=== PATIENT | female | born 1935 | race Caucasian/White ===

== ENCOUNTER 2022-06-08 13:37 | Inpatient (IN) | payer MEDICARE, BC ==
[~2022-06-08] VITALS: Ht 162.6 cm; Wt 67.9 kg
[2022-06-08 14:08] LABS: Source, Urine Fem Cath
[2022-06-08 14:16] LABS: Appearance, Urine Hazy (Clear); Bilirubin, Urine Neg (Neg); Blood, Urine 4+ (Neg); Color, Urine Yellow (P-Yellow); Glucose Qualitative, Urine Neg (Neg); Ketones, Urine 3+ (Neg); Leukocyte Esterase, Urine 3+ (Neg); Nitrite, Urine Neg (Neg); Protein, Urine 2+ (Neg); Specific Gravity, Urine 1.015 (1.003-1.022); Urobilinogen, Urine NORM (Normal)
[2022-06-08 14:46] LABS: Albumin, Blood 3.2 g/dL (3.4-5.0); Albumin/Globulin Ratio 0.8 (0.8-1.8); Bilirubin, Total 0.5 mg/dL (0.1-1.0); Bun/Creatinine Ratio 19.6 (12.0-20.0); Calcium, Blood 9.1 mg/dL (8.5-10.1); Creatinine, Blood 0.61 mg/dL (0.40-1.00); Potassium, Blood 2.9 mmol/L (3.5-5.5); Total Protein, Blood 7.2 g/dL (6.4-8.2)
[2022-06-08 14:48] LABS: BASOPHILS ABSOLUTE AUTO 0.07 K/mm3 (0.00-0.23); BASOPHILS PERCENT AUTO 0 % (0-2); EOSINOPHILS ABSOLUTE AUTO 0.01 K/mm3 (0.00-0.68); EOSINOPHILS PERCENT AUTO 0 % (0-6); Hematocrit 37.8 % (33.0-51.0); Hemoglobin 13.5 g/dL (11.5-16.0); IMMATURE GRAN ABSOLUTE AUTO 0.22 K/mm3 (0.00-0.10); IMMATURE GRAN PERCENT AUTO 1 % (0-1); LYMPHOCYTES ABSOLUTE AUTO 0.49 K/mm3 (0.84-5.20); LYMPHOCYTES PERCENT AUTO 2 % (21-46); MONOCYTES ABSOLUTE AUTO 1.58 K/mm3 (0.16-1.47); MONOCYTES PERCENT AUTO 7 % (4-13); Mean Corpuscular HGB 30.4 pg (26.0-34.0); Mean Corpuscular HGB Conc 35.7 g/dL (31.5-36.5); Mean Corpuscular Volume 85 fL (80-100); Mean Platelet Volume 9.5 fL (9.1-12.4); NEUTROPHILS ABSOLUTE AUTO 21.63 K/mm3 (1.96-9.15); NEUTROPHILS PERCENT AUTO 90 % (41-73); Platelet Count 319 K/mm3 (150-400); RDW Coefficient Variation 12.5 % (11.7-14.2); RDW Standard Deviation 38.6 fL (35.1-46.3); Red Blood Cell Count 4.44 M/mm3 (3.80-5.20)
[2022-06-08 14:51] LABS: Magnesium, Blood 1.3 mg/dL (1.6-2.4)
[2022-06-08 14:54] LABS: Thyroid Stimulating Hormone 1.19 uIU/mL (0.360-4.800)
[2022-06-08 15:23] LABS: Influenza A, PCR NEGATIVE (NEGATIVE); Influenza B, PCR NEGATIVE (NEGATIVE); Resp Syncytial Virus, PCR NEGATIVE (NEGATIVE); SARS-Cov-2 (COVID-19) PCR, MMC NEGATIVE (NEGATIVE)
[2022-06-08 15:47] LABS: Bacteria Mod /hpf; Red Blood Cells, Urine 25-50 /hpf (0-2); Squamous Epithelial Cells Few /hpf (Few); White Blood Cells, Urine 50-100 /hpf (0-5)
[2022-06-08] MEDS ORDERED: GABA300 PO (20:25)
[2022-06-08] MEDS ORDERED: Cymbalta20 MG PO (20:26)
[2022-06-08] MEDS ORDERED: METO50ER PO (20:26)
[2022-06-08] MEDS ORDERED: LOSARTAN-HCTZ1 EACH PO (20:27)
[2022-06-08] MEDS ORDERED: LEVSOD150 PO (20:28)
[2022-06-08] MEDS ORDERED: PANT40 PO (20:29)
[2022-06-08] MEDS ORDERED: Colace100 MG PO (20:30)
[2022-06-09 03:37] LABS: Hematocrit 32.3 % (33.0-51.0); Hemoglobin 11.5 g/dL (11.5-16.0); Mean Corpuscular HGB 30.7 pg (26.0-34.0); Mean Corpuscular HGB Conc 35.6 g/dL (31.5-36.5); Mean Corpuscular Volume 86 fL (80-100); Mean Platelet Volume 9.6 fL (9.1-12.4); Platelet Count 264 K/mm3 (150-400); RDW Coefficient Variation 12.7 % (11.7-14.2); RDW Standard Deviation 39.7 fL (35.1-46.3); Red Blood Cell Count 3.74 M/mm3 (3.80-5.20)
[2022-06-09 04:00] LABS: BAND PERCENT MAN 13 % (0-8); BASOPHILS PERCENT MAN 0 % (0-2); EOSINOPHILS PERCENT MAN 0 % (0-6); LYMPHOCYTES ABSOLUTE MAN 1.22 K/mm3 (0.84-5.20); LYMPHOCYTES PERCENT MAN 5 % (21-46); MONOCYTES ABSOLUTE MAN 0.48 K/mm3 (0.16-1.47); MONOCYTES PERCENT MAN 2 % (4-13); NEUTROPHILS ABSOLUTE MAN 22.69 K/mm3 (1.96-9.15); SEG NEUTROPHILS PERCENT MAN 80 % (41-73); TOTAL CELLS COUNTED 100
[2022-06-09 04:08] LABS: Bun/Creatinine Ratio 23.6 (12.0-20.0); Calcium, Blood 8.5 mg/dL (8.5-10.1); Creatinine, Blood 0.51 mg/dL (0.40-1.00); Magnesium, Blood 1.8 mg/dL (1.6-2.4); Potassium, Blood 3.4 mmol/L (3.5-5.5)
--- NOTE | 2022-06-09 06:42 | NUR ---
SHIFT SUMMARY ED ADMIT THIS SHIFT. NONVERBAL, CONFUSED, MOANING OUT OCCASSIONALLY AND ATTEMPTING TO GET OOB. CHENCHO VEST ON FOR SAFETY. RESTLESS T/O NIGHT. TELE SR WITH BBB IN THE 90S. INCONT, PUREWICK AND ATTENDS IN PLACE. SPO2 >92% ON RA. VSS, BED IN LOWEST POSITION, ALARM ON, CALL LIGHT IN REACH. WILL CONTINUE TO MONITOR AND REPORT TO ONCOMING RN.
--- NOTE | 2022-06-09 17:09 | NUR ---
SHIFT SUMMARY MENTATION REMAINS THE SAME. PT CONTINUES TO MOAN OUT AND NOT ANSWER WITH ANY WORDS. PT WILL TRACK WITH EYES WHEN HER NAME IS CALLED. BP STABLE. HR REMAINS NSR. O2 SATS REMAIN ABOVE 90% ON RA. PT RESTLESS THIS AFTERNOON AND MEDICATED WITH TYLENOL ORDERED. AFTER TYLENOL ADMINISTRATION AND REPOSITIONING, PT ABLE TO RELAX AND REST. PT HAS BEEN INCONTINENT OF URINE THIS SHIFT AND PUREWICK IN PLACE. PUREWICK REPLACED THIS SHIFT AND BED BATH PROVIDED. PT REPOSITIONED Q2H AND MORE OFTEN NEEDED. FAMILY AT BEDSIDE ALL SHIFT. NS WITH KCL INFUSING PER ORDERS. WILL CONTINUE TO MONITOR AND REPORT TO ONCOMING RN. BED ALARM ON AND CAMERA ON FOR SAFETY
--- NOTE | 2022-06-09 21:39 | NUR ---
UPDATE PT NOTED TO HAVE WORD SALAD WELL POSSIBLE R. SIDED FACIAL DROOP. MOVING ALL EXTREMITIES WITHOUT DIFFICULTY. MASTER DEPUTY SHERIFF COURT SECURITY RESIDENT TO BEDSIDE FOR ASSESSMENT, NO NEW ORDERS FOR IMAGING AT THIS TIME.
[2022-06-10 04:08] LABS: BASOPHILS ABSOLUTE AUTO 0.02 K/mm3 (0.00-0.23); BASOPHILS PERCENT AUTO 0 % (0-2); EOSINOPHILS PERCENT AUTO 0 % (0-6); Hematocrit 34.7 % (33.0-51.0); Hemoglobin 11.7 g/dL (11.5-16.0); IMMATURE GRAN ABSOLUTE AUTO 0.15 K/mm3 (0.00-0.10); IMMATURE GRAN PERCENT AUTO 1 % (0-1); LYMPHOCYTES ABSOLUTE AUTO 0.91 K/mm3 (0.84-5.20); LYMPHOCYTES PERCENT AUTO 5 % (21-46); MONOCYTES ABSOLUTE AUTO 0.92 K/mm3 (0.16-1.47); MONOCYTES PERCENT AUTO 5 % (4-13); Mean Corpuscular HGB 30.2 pg (26.0-34.0); Mean Corpuscular HGB Conc 33.7 g/dL (31.5-36.5); Mean Corpuscular Volume 89 fL (80-100); Mean Platelet Volume 9.6 fL (9.1-12.4); NEUTROPHILS PERCENT AUTO 89 % (41-73); Platelet Count 255 K/mm3 (150-400); RDW Standard Deviation 42.3 fL (35.1-46.3); Red Blood Cell Count 3.88 M/mm3 (3.80-5.20)
[2022-06-10 04:34] LABS: Albumin, Blood 2.6 g/dL (3.4-5.0); Anion Gap 8 mmol/L (6-16); Blood Urea Nitrogen 12 mg/dL (8-24); CO2, Blood 20 mmol/L (21-32); Calcium, Blood 8.8 mg/dL (8.5-10.1); Chloride, Blood 108 mmol/L (98-108); Creatinine, Blood 0.52 mg/dL (0.40-1.00); Glomerular Filtration Rate 91 (60-); Glucose, Blood 109 mg/dL (70-99); Phosphorus, Blood 1.7 mg/dL (2.5-4.9); Potassium, Blood 3.4 mmol/L (3.5-5.5); Sodium, Blood 136 mmol/L (136-145)
--- NOTE | 2022-06-10 05:48 | NUR ---
SHIFT SUMMARY LETHARGIC AND RESTLESS T/O THE NIGHT, MOANING OUT BUT WHEN ASKED IF SHE WAS IN PAIN SHE STATES "NO.", OCCASIONAL WORD SALAD NOTED. PLEASE SEE PREVIOUS NOTE. TELE SR/ST 90-110. SPO2 >92 % ON RA. IM ZYPREXA GIVEN X1. INCONT, PUREWICK AND ATTENDS IN PLACE WITH ROSY COLORED URINE. VSS, NO ACUTE CHANGES AT THIS TIME. BED IN LOWEST POSITION WITH CALL LIGHT IN REACH. WILL CONTINUE TO MONITOR AND REPORT TO ONCOMING RN.
--- NOTE | 2022-06-10 07:34 | NUR ---
ASSUMED CARE: PT RESTING IN BED, MAKING SOUNDS BUT NOT SPEAKING OR FOLLOWING COMMANDS. FAMILY AT BEDSIDE. STATES THAT SHE IS ORIENTED AND AMBULATORY AT BASELINE BUT BECOMES CONFUSED LIKE THIS WITH UTI'S. PUREWICK IN PLACE FOR INCONTINENCE. DENIES FURTHER NEEDS AT THIS TIME
--- NOTE | 2022-06-10 12:04 | NUR ---
DR GARCIA CAME TO SEE PT AND DISCUSSED PT'S NEURO STATUS. DR GARCIA ORDERED HEAD CT TO RULE OUT OTHER CAUSES FOR NEURO STATUS. PT CONTINUES TO MOAN AND NOT SPEAK WORDS. ASKED DR ABOUT IV FLUIDS PER FAMILY REQUEST. STATES SHE WILL REVIEW. FAMILY REQUESTED TYLENOL SUPPOSITORY WHICH WAS ADMINISTERED.
--- NOTE | 2022-06-10 13:28 | NUR ---
PT TAKEN TO CT VIA GURNEY BY TRANSPORT STAFF
--- NOTE | 2022-06-10 13:57 | NUR ---
PT RETURNED FROM CT. SPEECH THERAPIST CONTACTED TO KNOW THAT PT IS AVAILABLE.
--- NOTE | 2022-06-10 17:23 | NUR ---
SHIFT SUMMARY: PT'S FAMILY HAS REMAINED AT BEDSIDE THIS SHIFT. HEAD CT DONE WITH NEGATIVE RESULT. IVF STARTED PER ORDERS AND FAMILY REQUEST. PT HAS REMAINED CONFUSED THIS SHIFT, NOT FOLLOWING COMMANDS. OCCASIONALLY TRACKS STAFF AND FAMILY IN ROOM, MORE RESPONSIVE WITH ACTIVITY BUT REMAINS HAVING GARBLED SPEECH THIS SHIFT. NO ACUTE NEEDS OR CONCERNS.
--- NOTE | 2022-06-10 18:28 | NUR ---
FAMILY CAME OUT OF ROOM EXPRESSING CONCERN THAT PT'S PUREWICK HAD NOT DRAINED ALL AFTERNOON. BLADDER SCAN OBTAINED WITH ONLY [address] ATTENDS DRY[address] SID CONTINUE TO MONITOR
--- NOTE | 2022-06-11 05:54 | NUR ---
SHIFT SUMMARY RESPONDS TO VERBAL/PAINFUL STIMULI, OCCASIONALLY MOANS OUT. SLEEPING T/O MOST OF THE NIGHT. Q2 REPOSITIONING AND ORAL CARE. TELE SR IN THE 90S. SPO2 >92% ON RA. VSS, NO ACUTE CHANGES AT THIS TIME. BED IN LOWEST POSITION WITH CALL LIGHT IN REACH. WILL CONTINUE TO MONITOR AND REPORT TO ONCOMING RN.
[2022-06-11 06:02] LABS: Hemoglobin 11.5 g/dL (11.5-16.0); Mean Corpuscular HGB 30.2 pg (26.0-34.0); Mean Corpuscular HGB Conc 34.8 g/dL (31.5-36.5); Mean Corpuscular Volume 87 fL (80-100); Mean Platelet Volume 10.2 fL (9.1-12.4); Platelet Count 269 K/mm3 (150-400); RDW Coefficient Variation 12.8 % (11.7-14.2); RDW Standard Deviation 40.5 fL (35.1-46.3); Red Blood Cell Count 3.81 M/mm3 (3.80-5.20); White Blood Cell Count 15.01 K/mm3 (4.00-11.30)
[2022-06-11 06:29] LABS: Albumin, Blood 2.3 g/dL (3.4-5.0); Anion Gap 10 mmol/L (6-16); Blood Urea Nitrogen 10 mg/dL (8-24); Bun/Creatinine Ratio 21.2 (12.0-20.0); CO2, Blood 21 mmol/L (21-32); Calcium, Blood 8.1 mg/dL (8.5-10.1); Chloride, Blood 106 mmol/L (98-108); Creatinine, Blood 0.47 mg/dL (0.40-1.00); Glomerular Filtration Rate 93 (60-); Glucose, Blood 101 mg/dL (70-99); Phosphorus, Blood 1.7 mg/dL (2.5-4.9); Potassium, Blood 3.1 mmol/L (3.5-5.5); Sodium, Blood 137 mmol/L (136-145)
--- NOTE | 2022-06-11 10:02 | NUR ---
AM NOTE: PATIENT OPENING EYES THIS AM. NOT TRACKING STAFF, MOANING OUT. NONVERBAL. DAUGHTERS AT BEDSIDE REPORT PATIENT SAYING A FEW WORDS YESTERDAY. PUPILS EQUAL AND REACTIVE TO LIGHT. NOT FOLLOWING ANY COMMANDS. GRIPPING SIDERAILS WHEN TURNING PATIENT. BEDREST WITH Q2 TURNS. ON ROOM AIR, SATING MID 90'S. LUNGS SOUNDING CLEAR AND DIM IN BASES. MUCOUS MEMBRANES DRY AND SOME COATED PLAQUE. ORAL CARE PREFORMED THIS AM, BUT PATIENT NOT FOLLOWING COMMANDS TO OPEN MOUTH. OCCASIONAL WEAK COUGH. TELE SHOWING SINUS RHYTHM WITH HR 70'S. BP STABLE. DOES NOT APPEAR TO BE IN ANY CARDIAC DISTRESS/PAIN. NO SIGNS OF EDEMA. PPP. BOWEL TONES PRESENT. ATTENDS IN PLACE. PUREWICK. NPO AT THIS TIME. FAILED SWALLOW EVAL WITH ST THIS AM. POTASSIUM PHOSPHATE INFUSING PER EMAR. REDNESS TO COCCYX THAT IS BLANCHABLE, Q2 TURNING. SCATTERED BRUISING AND OVERALL PALE. DAUGHTERS AT BEDSIDE AND UPDATED ON PLAN OF CARE. WILL CONTINUE TO MONITOR. CAMERA AND BED ALARM IN PLACE.
--- NOTE | 2022-06-11 12:17 | NUR ---
PATIENT WAKING UP MORE WITH AFTERNOON CARES. TRACKING WITH EYES, FOLLOWING SIMPLE COMMANDS TO OPEN MOUTH AND SQUEEZE HANDS. SHAKING HEAD YES/NO. SAYING DUAGHTERS NAME AND HOLDING HER FACE. TELE ALERTED THIS RN THAT PATIENT HAS BEEN HAVING SHORT RUNS OF AFIB. NOT SUSTAINING. DR. GARCIA BY AND THIS RN DISCUSSED SHORT RUNS OF AFIB, TEMPERATURE THIS AM, AND AFTERNOON NEURO STATUS. SPEECH THERAPY CALLED TO UPDATE ON ALERTNESS, PLAN TO RE-EVAL AROUND 1300. FAMILY AT BEDSIDE AND UPDATED.
--- NOTE | 2022-06-11 14:03 | NUR ---
SPEECH THERAPY BACK IN TO SEE PATIENT. PATIENT NOT ABLE TO WAKE UP ENOUGH TO PARTICIPATE SAFELY DESPITE SPEECH THERAPY AND THIS RN'S BEST EFFORTS TO WAKE PATIENT UP. FAMILY AT BEDSIDE AND UPDATED. WILL CONTINUE TO MONITOR.
--- NOTE | 2022-06-11 16:57 | NUR ---
PATIENT TEMP STARTING TO ELEVATE. TYLENOL GIVEN AT 1430, RECTAL TEMP PROBE PLACED TO CONTINUALLY MONITOR. ICE PACK PLACED IN ARMPITS AND BEHIND NECK. BP AND HR STABLE. PATIENT CONTINUES TO HAVE SMALL EPISODES OF AFIB BUT DOES NOT SUSTAIN.
--- NOTE | 2022-06-11 17:53 | NUR ---
UPDATED DR. GARCIA ON PATIENT TEMP AT 101.0. ORDERS TO GIVE ADDITIONAL TYLENOL SUPPOSITORY X1 NOW.
[2022-06-11 18:43] LABS: Source, Urine Foley catheter
--- NOTE | 2022-06-11 18:46 | NUR ---
STAT CHEST XRAY, BLOOD CULTURES, PROCAL, AND UA VIA STRAIGHT CATH COMPLETED. PATIENT CONTINUES TO MOAN, AND NOT VERBALLY RESPONDING, SAID "HUH" WHEN EXPLAINING STRAIGHT CATH FOR UA. TRACKING WITH EYES, OCCASIONALLY SMILING. PUPILS REMAIN EQUAL AND REACTIVE TO LIGHT. REMAINS ON ROOM AIR. TELE CONTINUES TO SHOW SINUS RHYTHM WITH HR 70-80'S. OCCASIONAL SHORT RUNS OF AFIB, NOT SUSTAINING, DR. GARCIA AWARE. TMAX THIS SHIFT 101.3 TYLENOL SUPPOSITORIES GIVEN PER EMAR. ICE PACKS AND FAN PROVIDED. RECTAL TEMP PROBE IN PLACE. DAUGHTERS AT BEDSIDE AND UPDATED THROUGHOUT DAY. PUREWICK REMAINS IN PLACE DRAINING DARK YELLOW URINE. NS WITH KCL CONTINUES TO INFUSE.
[2022-06-11 18:49] LABS: Appearance, Urine Turbid (Clear); Bilirubin, Urine Neg (Neg); Blood, Urine 5+ (Neg); Color, Urine Yellow (P-Yellow); Glucose Qualitative, Urine Neg (Neg); Ketones, Urine 3+ (Neg); Leukocyte Esterase, Urine 3+ (Neg); Nitrite, Urine Neg (Neg); Protein, Urine 2+ (Neg); Urobilinogen, Urine NORM (Normal)
[2022-06-11 19:25] LABS: Amorphous Light (0-Heavy); Bacteria Many /hpf; Red Blood Cells, Urine 25-50 /hpf (0-2); Squamous Epithelial Cells Mod /hpf (Few); White Blood Cells, Urine TNTC /hpf (0-5)
[2022-06-11 19:26] LABS: Hyaline Casts 0-2 /lpf (0-2); Transitional Epithelial Cells Rare /hpf (0-Rare)
[2022-06-12 04:18] LABS: BASOPHILS ABSOLUTE AUTO 0.01 K/mm3 (0.00-0.23); BASOPHILS PERCENT AUTO 0 % (0-2); EOSINOPHILS PERCENT AUTO 0 % (0-6); Hematocrit 37.4 % (33.0-51.0); Hemoglobin 12.8 g/dL (11.5-16.0); IMMATURE GRAN PERCENT AUTO 1 % (0-1); LYMPHOCYTES PERCENT AUTO 18 % (21-46); MONOCYTES ABSOLUTE AUTO 1.06 K/mm3 (0.16-1.47); MONOCYTES PERCENT AUTO 9 % (4-13); Mean Corpuscular HGB 29.9 pg (26.0-34.0); Mean Corpuscular HGB Conc 34.2 g/dL (31.5-36.5); Mean Corpuscular Volume 87 fL (80-100); NEUTROPHILS ABSOLUTE AUTO 8.26 K/mm3 (1.96-9.15); NEUTROPHILS PERCENT AUTO 72 % (41-73); Platelet Count 326 K/mm3 (150-400); RDW Coefficient Variation 12.8 % (11.7-14.2); RDW Standard Deviation 40.7 fL (35.1-46.3); Red Blood Cell Count 4.28 M/mm3 (3.80-5.20); White Blood Cell Count 11.43 K/mm3 (4.00-11.30)
--- NOTE | 2022-06-12 04:38 | NUR ---
MOANING/PAIN UPON REPOSITIONING PATIENT WAS MOANING IN BED AND NODDED HEAD "YES" TO PAIN. CALL MADE TO DR. PAULINO TO UPDATE. ORDER RECEIVED FOR TORADOL 15MG IV X 1 DOSE. PATIENT IS NOW ASLEEP AND NO LONGER MOANING. WILL AWAIT TORADOL ADMINISTRATION UNTIL PATIENT IS AWAKE TO ASSESS.
[2022-06-12 04:44] LABS: Albumin, Blood 2.5 g/dL (3.4-5.0); Anion Gap 6 mmol/L (6-16); Blood Urea Nitrogen 14 mg/dL (8-24); Bun/Creatinine Ratio 23.5 (12.0-20.0); CO2, Blood 25 mmol/L (21-32); Calcium, Blood 8.6 mg/dL (8.5-10.1); Chloride, Blood 108 mmol/L (98-108); Glomerular Filtration Rate 88 (60-); Glucose, Blood 105 mg/dL (70-99); Phosphorus, Blood 2.7 mg/dL (2.5-4.9); Potassium, Blood 3.7 mmol/L (3.5-5.5); Sodium, Blood 139 mmol/L (136-145)
--- NOTE | 2022-06-12 06:18 | NUR ---
SHIFT SUMMARY PATIENT SLEPT OFF AND ON THROUGHOUT SHIFT WITH MOMENTS OF MOANING. OF THIS MORNING, PATIENT IS INCREASINGLY MORE ALERT AND RESPONSIVE WITH STAFF. FOLLOWS MORE COMMANDS AND NODS HEAD TO SIMPLE QUESTIONS. NO WORDS SPOKEN AT THIS TIME. SECOND DOSE OF TORADOL TYLENOL SUPPOSITORY ADMINISTERED. TMAX THIS SHIFT OF 101.6F. NO OTHER CHANGES DURING SHIFT.
--- NOTE | 2022-06-12 09:43 | NUR ---
DR. GARCIA CALLED AND UPDATED ON PATIENT SUSTAINING IN AFIB/AFLUTTER THROUGHOUT MOST OF NOC SHIFT AND THIS AM. RATE CONTROLLED. BP STBALE. NO NEW ORDERS. WILL ASSESSE PATIENT UPON ROUNDING.
--- NOTE | 2022-06-12 13:35 | NUR ---
DURING MORNING ASSESSMENT, PT DROWSY/LETHARGIC. SHE WAS NOT ABLE TO FOLLOW COMMANDS DURING REPOSITIONING AND CARES. PUREWICK CHANGED AND ATTENDS IN PLACE. AROUND 10AM, PT WOKE UP. PT WAS ABLE TO FOLLOW COMMANDS AND VERBALIZE CARE NEEDS. SPEECH THERAPIST BALAJI: [facility] SOFT DIET ORDERED W/ FEED ASSIST. PT ON RM AIR, SAT @ HIGH 90S. UPON AUSCULTATION, LUNG SOUNDS CLEAR, SNORE NOTED. TELE SHOWING AFIB/AFLUTTER. DR. GARCIA NOTIFIED OF PT SUSTAINING AFIB/AFLUTTER THROUGHOUT NOC SHIFT AND THIS MORNING. HR 70S-110S. BP STABLE. PT FEBRILE, TEMP @ 99 - 100.6. MEDICATED W/ TYLENOL, TEMP DECREASED. ECHO BEING DONE AT THIS TIME. PT/OT ORDERS IN PLACE. FAMILY REMAINS AT BEDSIDE. ABX INFUSED THIS AM.
--- NOTE | 2022-06-12 14:02 | NUR ---
Echocardiogram completed.
--- NOTE | 2022-06-12 19:37 | NUR ---
SEE AM NOTE FOR UPDATES. PATIENT MENTATION WAXING WITH ELEVATED TEMP. ABLE TO WAKE FOR MEALS AND CARES. CONTINUES TO FOLLOW SIMPLE COMMANDS. PT/OT ORDERS IN PLACE. Q2 TURNING AND NEEDED. REMAINS ON ROOM AIR SATING ABOVE 95%. NO COUGH NOTED THROUGHOUT SHIFT. TELE CONTINUES TO SHOW AFLUTTER WITH HR 70-110'S. PO METOPROLOL RESTARTED AND GIVEN WITH CRUSHED APPLESAUCE. DENIES CHEST PAIN/PRESSURE THROUGHOUT SHIFT. EATING SMALL AMOUNTS. SWALLOWING SAFELY AND MAINTAINING SPEECH THERAPY ORDERS. FAMILY REMAIN AT BEDSIDE THROUGHOUT SHIFT. PATIENT TMAX THIS SHIFT 101.0. PO TYLENOL PROVIDED PER EMAR WITH SOME RELIED IN TEMPERATURE. COMPLAINS OF SOME HIP SORNESS THIS EVENING. DR. GARCIA CALLED AND TORDAL 15 MG IV X1 ORDERED AND GIVEN TO PATIENT. PATIENT NOW SLEEPING. PUREWICK CHANGED THROUGHOUT SHIFT. ATTENDS IN PLACE. REPORTED OFF TO NURY MELGOZA. BED ALARM IN PLACE.
--- NOTE | 2022-06-12 21:00 | NUR ---
ASSUMPTION OF CARE THIS RN ASSUMED CARE OF PATIENT AT 1900. REPORT TAKEN FROM LILLIAN MELGOZA. PATIENT'S VSS. TEMP OF 99.3 AT THIS TIME. RECTAL PROBE IN PLACE. PATIENT CONTINUES TO BE IN AFIB WITH HR 90'S. DENIES PAIN AT THIS TIME. PATIENT TOOK PO MEDS WELL CRUSHED IN APPLESAUCE. NO SIGNS OF DISTRESS OR ASPIRATION NOTED. PATIENT IS ALERT BUT ORIENTED TO SELF AND FAMILY ONLY. UNSURE OF DATE/TIME/SITUATION/PLACE. CALM AND COOPERATIVE WITH CARE. REPOSITIONING DONE Q2HRS. ATTENDS IN PLACE. PUREWICK IN PLACE AND DRAINING DARK YELLOW URINE. BED IN LOWEST POSITION, BED ALARM ON, CALL LIGHT WITHIN REACH.
[2022-06-13 04:10] LABS: Hematocrit 39.6 % (33.0-51.0); Mean Corpuscular HGB 30.2 pg (26.0-34.0); Mean Corpuscular HGB Conc 35.4 g/dL (31.5-36.5); Mean Corpuscular Volume 85 fL (80-100); Mean Platelet Volume 9.8 fL (9.1-12.4); Platelet Count 401 K/mm3 (150-400); RDW Coefficient Variation 12.8 % (11.7-14.2); RDW Standard Deviation 39.3 fL (35.1-46.3); Red Blood Cell Count 4.64 M/mm3 (3.80-5.20); White Blood Cell Count 12.01 K/mm3 (4.00-11.30)
[2022-06-13 04:55] LABS: Albumin, Blood 2.5 g/dL (3.4-5.0); Anion Gap 9 mmol/L (6-16); Blood Urea Nitrogen 15 mg/dL (8-24); Bun/Creatinine Ratio 24.4 (12.0-20.0); CO2, Blood 23 mmol/L (21-32); Calcium, Blood 8.8 mg/dL (8.5-10.1); Chloride, Blood 107 mmol/L (98-108); Creatinine, Blood 0.61 mg/dL (0.40-1.00); Glomerular Filtration Rate 88 (60-); Glucose, Blood 99 mg/dL (70-99); Phosphorus, Blood 2.1 mg/dL (2.5-4.9); Potassium, Blood 3.5 mmol/L (3.5-5.5); Sodium, Blood 139 mmol/L (136-145)
--- NOTE | 2022-06-13 05:41 | NUR ---
SHIFT SUMMARY PATIENT CONTINUES TO BE ALERT/LETHARGIC AT TIMES. ALERT TO SELF AND FAMILY. OCCASIONALLY KNOWS THE DATE/YEAR. CONFUSION APPEARS TO WORSEN WITH FEVER. MAX TEMP OF 102.0 DURING THIS SHIFT. MEDICATING WITH PO TYLENOL Q6HRS PER EMAR. TEMP COMES DOWN TO 99.0 AFTER 1-2 HOURS, BUT BEGINS TO RISE AGAIN AFTER 3-4 HOURS. EXTREMETIES COLD TO TOUCH. BS ACTIVE. BP STABLE. PATIENT CONTINUES TO BE IN AFIB WITH HR 80-100 THROUGHOUT THE SHIFT. RECTAL TEMP PROBE IN PLACE. NO FURTHER CHANGES SINCE PREVIOUS NOTE. SEE ASSESSMENT. BED IN LOWEST POSITION, BED ALARM ON, CALL LIGHT WITHIN REACH. THIS RN WILL CONTINUE TO MONITOR UNTIL SHIFT CHANGE AT 0700.
--- NOTE | 2022-06-13 18:00 | NUR ---
SHIFT NOTE RECTAL TEMP PROBE REMOVED THIS SHIFT PER ORDER FROM DR CEDEÑO. PT WAS ALERT AND INTERACTING WITH STAFF THIS AM, SHE WORKED WITH PHYSICAL THERAPY AND OCCUPATIONAL THERAPY AND BECAME VERY TIRED, PT HAS BEEN SLEEPING SINCE. PT DOES WAKE FOR RESPOSITIONING AND VITAL CHECK BUT QUICKLY RETURNS TO SLEEP. WHEN PT WAS AWAKE SHE WAS NOT AWARE OF HER SURROUNDINGS, SHE WAS ORIENTED TO SELF AND HER FAMILY AT BEDSIDE. SHE HAS REMAINED IN SINUS RHYTHM T/O THE DAY THAT DOES OCCASIONALLY BECOMES SINUS TACH.
--- NOTE | 2022-06-13 22:31 | NUR ---
ASSUMPTION OF CARE THIS RN ASSUMED CARE OF PATIENT AT 1900. REPORT TAKEN FROM JOSLYN MELGOZA. PATIENT ALERT AT SHIFT CHANGE BUT IS NOW LETHARGIC. PATIENT ORIENTED TO SELF, FAMILY, AND SITUATION BUT IS UNSURE OF DATE/YEAR. PATIENT MEDICATED FOR PAIN PER EMAR. TEMPORAL TEMP 100.0 AT SHIFT CHANGE. PATIENT WAS ABLE TO TAKE CRUSHED MEDS IN APPLESAUCE WELL FOR THIS RN. ORAL CARE DONE AFTER. PATIENT GIVEN WATER AND WAS UNABLE TO MOVE CUP UP TO MOUTH. THIS RN NOTES THAT THE PATIENT WAS ABLE TO DO THIS THE PREVIOUS NIGHT OF 06/12. PATIENT TOOK SIP OF WATER WITH THIS RN'S HELP AND BEGAN COUGHING. PATIENT LEFT AT 90 DEGRESS FOR 30 MINUTES AFTER INTAKE. PATEINT PLACED ON 2L VIA NC D/T DESATTING WHILE ASLEEP. SPO2 >92% AT THIS TIME. OTHER VSS. PATIENT BEING REPOSITIONED Q2HRS. PUREWICK IN PLACE D/T INCONTINENCE. BED IN LOWEST POSITION AND CALL LIGHT WITHIN REACH.
--- NOTE | 2022-06-14 04:46 | NUR ---
SHIFT SUMMARY NO ACUTE CHANGES OVERNIGHT. PATIENT CONTINUES TO SWITCH FROM BEING ALERT AND LETHARGIC. WHILE AWAKE THE PATIENT WAS ABLE TO TALK TO THIS RN FOR A FEW MINUTES AT A TIME BEFORE SHE BEGAN TO FALL ASLEEP AGAIN. VSS THROUGHOUT THE SHIFT. TEMPORAL TEMP AROUND 100.0. MEDICATED PER EMAR FOR PAIN. PATIENT TOOK ORAL INTAKE WELL FOR MOST OF THIS SHIFT. PATIENT WAS SAT UPRIGHT AT 90 DEGREES AROUND 0430 THIS AM TO DRINK SOME WATER AND BEGAN TO COUGH/ASPIRATE WHICH REQUIRED SUCTIONING. PATIENT LEFT UPRIGHT AT THIS TIME; PATIENT WAS ALERT AND CONVERSING DURING THIS EPISODE. THIS RN TO KEEP PATIENT NPO AT THIS TIME D/T COUGHING WITH WATER. REPOSITIONING Q2HRS. PUREWICK IN PLACE. BED IN LOWEST POSITION AND CALL LIGHT WITHIN REACH. THIS RN WILL CONTINUE TO MONITOR UNTIL SHIFT CHANGE AT 0700.
[2022-06-14 09:21] LABS: Hematocrit 35.8 % (33.0-51.0); Hemoglobin 12.5 g/dL (11.5-16.0); Mean Corpuscular HGB 30.1 pg (26.0-34.0); Mean Corpuscular HGB Conc 34.9 g/dL (31.5-36.5); Mean Corpuscular Volume 86 fL (80-100); Mean Platelet Volume 9.4 fL (9.1-12.4); Platelet Count 374 K/mm3 (150-400); RDW Coefficient Variation 12.9 % (11.7-14.2); RDW Standard Deviation 40.1 fL (35.1-46.3); Red Blood Cell Count 4.15 M/mm3 (3.80-5.20)
[2022-06-14 09:49] LABS: Albumin, Blood 2.5 g/dL (3.4-5.0); Anion Gap 5 mmol/L (6-16); Blood Urea Nitrogen 14 mg/dL (8-24); Bun/Creatinine Ratio 20.7 (12.0-20.0); CO2, Blood 27 mmol/L (21-32); Calcium, Blood 8.4 mg/dL (8.5-10.1); Chloride, Blood 104 mmol/L (98-108); Creatinine, Blood 0.68 mg/dL (0.40-1.00); Glomerular Filtration Rate 85 (60-); Glucose, Blood 100 mg/dL (70-99); Phosphorus, Blood 2.4 mg/dL (2.5-4.9); Potassium, Blood 3.5 mmol/L (3.5-5.5); Sodium, Blood 136 mmol/L (136-145)
--- NOTE | 2022-06-14 20:54 | NUR ---
ASSUMPTION OF CARE THIS RN ASSUMED CARE OF PATIENT AT 1900. REPORT TAKEN FROM JOSLYN MELGOZA. PATIENT WITH NSR ON MONITOR WITH HR 80-90'S AT THIS TIME. BP STABLE. WITH SBP 110'S. PATIENT ON RA WITH SPO2 >92%. LOW GRADE TEMP NOTED WITH TEMPORAL PROBE NOTED. PATIENT DOES NOT APPEAR TO BE IN ANY DISTRESS AT THIS TIME. PATIENT LETHARGIC SO FAR THIS SHIFT. RESPONDING TO VERBAL STIMULI BUT ONLY BRIEFLY OPENS EYES AND THEN QUICKLY SHUTS THEM AND BEGINS SNORING AGAIN. THIS RN UNABLE TO WAKE PATIENT UP ENOUGH TO TAKE PO MEDS THIS EVENING; WILL CONTINUE TO ASSESS AND TRY AGAIN AT A LATER TIME. PATIENT ONLY MOANING/MUMBLING TO QUESTIONS AT THIS TIME. PATIENT BEING REPOSITIONED Q2HRS. PUREWICK IN PLACE. PERICARE DONE AND ATTENDS DRY. BED IN LOWEST POSITION AND CALL LIGHT WITHIN REACH.
[2022-06-15 03:55] LABS: Hematocrit 35.2 % (33.0-51.0); Hemoglobin 12.1 g/dL (11.5-16.0); Mean Corpuscular HGB 30.3 pg (26.0-34.0); Mean Corpuscular HGB Conc 34.4 g/dL (31.5-36.5); Mean Corpuscular Volume 88 fL (80-100); Mean Platelet Volume 9.2 fL (9.1-12.4); Platelet Count 367 K/mm3 (150-400); RDW Standard Deviation 41.8 fL (35.1-46.3); White Blood Cell Count 7.82 K/mm3 (4.00-11.30)
[2022-06-15 04:31] LABS: Albumin, Blood 2.3 g/dL (3.4-5.0); Anion Gap 3 mmol/L (6-16); Blood Urea Nitrogen 16 mg/dL (8-24); Bun/Creatinine Ratio 21.7 (12.0-20.0); CHOL/HDL RATIO 5.1; CO2, Blood 27 mmol/L (21-32); Calcium, Blood 8.3 mg/dL (8.5-10.1); Chloride, Blood 107 mmol/L (98-108); Cholesterol 192 mg/dL (50-200); Creatinine, Blood 0.74 mg/dL (0.40-1.00); Glomerular Filtration Rate 79 (60-); Glucose, Blood 111 mg/dL (70-99); HDL Cholesterol 38 mg/dL (>39); LDL/HDL RATIO 3.2; Low Density Lipoprotein Chol 120 mg/dL (0-110); Phosphorus, Blood 3.3 mg/dL (2.5-4.9); Potassium, Blood 3.9 mmol/L (3.5-5.5); Sodium, Blood 137 mmol/L (136-145); Triglycerides 168 mg/dL (30-160); Very Low Density Lipoprot Chol 33 mg/dL (6-32)
--- NOTE | 2022-06-15 04:54 | NUR ---
SHIFT SUMMARY NO ACUTE CHANGES OVERNIGHT. PATIENT HAS BEEN ALERT THROUGHOUT MOST OF THE SHIFT SINCE 2200. NSR ON TELE WITH HR 80-90'S. BP STABLE. AFEBRILE AT THIS TIME. SPO2 >92% ON RA. PATIENT CONTINUES TO COMPLAIN OF HIP PAIN; MEDICATING PER EMAR. REPOSITIONING Q2HRS. PUREWICK IN PLACE. ATTENDS DRY. EXTREMETIES ELEVATED. BED IN LOWEST POSITION AND CALL LIGHT WITHIN REACH. THIS RN WILL CONTINUE TO MONITOR UNTIL SHIFT CHANGE AT 0700.
--- NOTE | 2022-06-15 17:42 | NUR ---
SHIFT NOTE PT AWAITING TRANSFER TO MEDICAL FLOOR. PT IS ALERT, SHE HAS BEEN ABLE TO STAY AWAKE FOR MOST OF THE DAY. PT CONTINUES TO BE A FEEDER, EATING PUREE DIET WELL. VSS. SHE HAS BEEN TREATED T/O THE DAY FOR FEVER AND PAIN. FAMILY AT BEDSIDE T/O THE DAY. PT NOTED TO HAVE MORE STRENGTH AND MOBILITY TO RT ARM. MENTATION CONTINUES TO IMPROVE T/O THE DAY. APPETITE CONITNUES TO INCREASE. PT WITH 2 SOFT BMs TODAY.
--- NOTE | 2022-06-16 04:32 | NUR ---
SHIFT SUMMARY: PT REMAINS ALERT, ORIENTED TO SELF AND SURROUNDINGS, FORGETFUL AT TIMES. BP AND HR STABLE, AFEBRILE, SATS >96% ON ROOM AIR. PT WITH COMPLAINTS OF HIP PAIN THROUGHOUT THE NIGHT, MEDICATED PER EMAR. PURE WICK IN PLACE, CONNECTED TO SUCION, NO BM. REPOS Q2 TO MAINTAIN SKIN INTEGRITY. ORAL CARE PROVIDED, SUCTIONS AT BEDSIDE. POWERGLIDE REMAINS IN KALA, DRAWS AND FLUSHES. FAMILY AT BEDSIDE BEGINNING OF SHIFT AND UPDATED ON PT CARE WITH PERMISSION. PT REMAINS MED NO TELE STATUS. BED IN LOW, CALL LIGHT IN REACH, WILL REPORT TO ONCOMING RN.
--- NOTE | 2022-06-16 18:28 | NUR ---
PT SUMMARY: PT ALERT AND ORIENTED TO FAMILY, SELF AND SITUATION, CONVERSIVE TO FAMILY AND STAFF ANSWERS QUESTIONS APPROPRIATELY FOLLOWS COMMAND, NO FACIAL DROOP NOTED, BUE WEAKNESS NOTED, RIGHT ARM EDENATOUS ELEVATED IN PILLOWS MOST OF THE SHIFT. VITALS HAS BEEN STABLE. PT WAS ABLE TO WORK WITH PT/S/OT, TOOK A NAP AFTER LUNCH TIME FAMILY AT THE BEDSIDE ALL SHIFT. BED BATH COMPLETED. PUREWICK IN PLACE DRAINING DARK YELLOW URINE. REPEAT HEAD CT WAS DONE TODAY NO SIGNIFICANT CHANGE FROM LAST HEAD CT, FAMILY AT BEDSIDE AWARE. PT PLAN TO DISCHARGE TO SNF, TO FOLLOW UP IN AM. PT MEDICATED FOR PAIN ONCE AND TYLENOL FOR LOW GRADE FEVER 100.0 AROUND DINNER TIME, NO OTHER ISSUES ENCOUNTERED, PT IN BED RESTING CALL LIGHTS IN REACH WILL REPORT TO ONCOMING SHIFT
[2022-06-17 03:57] LABS: Hematocrit 31.4 % (33.0-51.0); Hemoglobin 10.8 g/dL (11.5-16.0); Mean Corpuscular HGB 30.5 pg (26.0-34.0); Mean Corpuscular HGB Conc 34.4 g/dL (31.5-36.5); Mean Corpuscular Volume 89 fL (80-100); Mean Platelet Volume 9.2 fL (9.1-12.4); Platelet Count 396 K/mm3 (150-400); RDW Coefficient Variation 13.3 % (11.7-14.2); RDW Standard Deviation 42.5 fL (35.1-46.3); Red Blood Cell Count 3.54 M/mm3 (3.80-5.20); White Blood Cell Count 6.56 K/mm3 (4.00-11.30)
--- NOTE | 2022-06-17 04:13 | NUR ---
SHIFT SUMMARY: PT REMAINS ALERT AND ORIENTED TO SELF AND SURROUNDINGS. FORGETFUL AT TIMES. BP AND HR STABLE, AFEBRILE THROUGHOUT THE NIGHT, SATS >96% ON ROOM AIR, RESPIRATIONS EVEN AND UNLABORED. PT SLEPT ON AND AND OFF A MAJORITY OF THE NIGHT. MEDICATED X1 FOR HIP PAIN. REPOS Q2 TO MAINTAIN SKIN INTEGRITY. POWERGLIDE IN KALA, DRAWS AND FLUSHES. PUREWICK REMAINS IN PLACE, CONNECTED TO SUCTION, NO BM. ORAL CARE PROVIDED WOTH SIPS OF WATER DURING THE SHIFT. PLAN FOR POSSIBLE D/C TO SNF THIS AM, AWAITING PLACEMENT. BED IN LOW, CALL LIGHT IN REACH, WILL REPORT TO ONCOMING RN.
[2022-06-17 04:31] LABS: C-REACTIVE PROTEIN, EXT RANGE 1.25 mg/dL (0.000-0.300)
[2022-06-17 05:50] LABS: Albumin, Blood 2.2 g/dL (3.4-5.0); Albumin/Globulin Ratio 0.7 (0.8-1.8); Bilirubin, Total 0.3 mg/dL (0.1-1.0); Bun/Creatinine Ratio 31.6 (12.0-20.0); Calcium, Blood 8.2 mg/dL (8.5-10.1); Creatinine, Blood 0.67 mg/dL (0.40-1.00); Globulin, Blood 3.2 g/dL (2.2-4.0); Potassium, Blood 4.2 mmol/L (3.5-5.5); Total Protein, Blood 5.4 g/dL (6.4-8.2)
--- NOTE | 2022-06-17 15:30 | NUR ---
PT TRANSFERRED TO ROOM 301, REPORT GIVEN TO ELIANE MELGOZA. FAMILY AT THE BEDSIDE DURING THE TRANSFER. NO ACUTE CHANGE SINCE THIS AM, VITALS HAS BEEN STABLE MEDICATED WITH TORADOL AND TYLENOL FOR PAIN, HEATING PACK ON THE BACK IN PLACE, PT REPOSITIONED FOR COMFORT. PT WAS ABLE TO WORK WITH PT/OT/ST. DIET ADVANCED TO SOFT BITE SIZE, MEDS WHOLE IN PUREE. PT PLAN TO DC TO SNF TOMORROW IF STABLE. NO OTHER ISSUES ENCOUNTERED. ALL BELONGINGS SENT WITH THE PT, PT TRANSFERRED VIA PCU BED
--- NOTE | 2022-06-17 16:01 | NUR ---
REPORT RECEIVED FROM TALA MELGOZA FROM PCU. PT TX TO ROOM 301 VIA GURNEY. PT A/O X 4 ON ARRIVAL, NO APPARENT S/S OF DISTRESS. RR E/U. PT DENIES PAIN. PT ORIENTED TO ROOM/CALL LIGHT/FALL PRECAUTIONS. PT PURWICK REPLACED WITH CLEAN NEW ONE. PT HEATING PAD PLACED ON INTERMITTENT 20 ON/OFF CYCLE TO LOWER BACK. PT GIVEN ICE WATER NO STRAWS. DAUGHTERS PRESENT AND UPDATED ON NEXT PAIN MEDICATION ADMIN PER REQUEST. PT DENIES ANY FURTHER NEEDS AT THIS TIME.
--- NOTE | 2022-06-18 04:37 | NUR ---
SHIFT SUMMARY PT A&O 2-3 - PT LAYING IN BED DURING BEDSIDE ROUNDS- PUREWICK IN PLACE D/T INCONTIENCE AND REDNESS IN THE PERIAREA, PT REQUESTED PAIN MEDICATION, INDEGISTION, AND SLEEP AID- CALL TO HOSPITIALIST - NEW ORDER FOR MELATONIN AND TUMS- BOTH GIVEN TO PT- PT SLEPT T/O NIGHT- BED LOW POSITION, CALL LIGHT WITHIN REACH, BED ALARM IN PLACE
[2022-06-18] MEDS ORDERED: ASPI81CH PO (10:19)
[2022-06-18] MEDS ORDERED: Acetaminophen650 M1 PO (10:20)
[2022-06-18] MEDS ORDERED: Calcium Carbon500 MG PO (10:20)
[2022-06-18] MEDS ORDERED: LOSA50 PO (10:22)
[2022-06-18] MEDS ORDERED: MELA3 PO (10:23)
[2022-06-18 10:50] LABS: Influenza A, PCR NEGATIVE (NEGATIVE); Influenza B, PCR NEGATIVE (NEGATIVE); Resp Syncytial Virus, PCR NEGATIVE (NEGATIVE); SARS-Cov-2 (COVID-19) PCR, MMC NEGATIVE (NEGATIVE)
--- NOTE | 2022-06-18 15:41 | NUR ---
PT DISCHARGED 1514 TO [facility] VIA STRETCHER, REPORT CALLED TO MICK. BELONGINGS SENT, DAUGHTER HAZEL GOING OVER TO FACILITY WITH MOM. IV AND POWERGLIDE DC'D AT 1400.
== END 2022-06-18 15:16 | DRG 871 ==
LOC: ER 13:37 → PCU 19:39 → MEDS 19:39 → PCU 19:42 → MEDS 06-17 15:41
PROVIDERS: Emergency Medicine; Internal Medicine; Student in an Organized Health Care Education/Training Program; ADMIT Family Medicine
DX: A41.4 Sepsis due to anaerobes (principal); G92.8 Other toxic encephalopathy; J18.9 Pneumonia, unspecified organism; N39.0 Urinary tract infection, site not specified; Z16.12 Extended spectrum beta lactamase (ESBL) resistance; E87.20 Acidosis, unspecified; K52.1 Toxic gastroenteritis and colitis; R41.4 Neurologic neglect syndrome; G81.91 Hemiplegia, unspecified affecting right dominant side; Z66 Do not resuscitate; R65.20 Severe sepsis without septic shock; Z20.822 Contact with and (suspected) exposure to COVID-19; E87.6 Hypokalemia; E83.42 Hypomagnesemia; I10 Essential (primary) hypertension; E03.9 Hypothyroidism, unspecified; R32 Unspecified urinary incontinence; K21.9 Gastro-esophageal reflux disease without esophagitis; Z96.651 Presence of right artificial knee joint; K44.9 Diaphragmatic hernia without obstruction or gangrene; B96.1 Klebsiella pneumoniae [K. pneumoniae] as the cause of diseases classified elsewhere; E83.39 Other disorders of phosphorus metabolism; T36.95XA Adverse effect of unspecified systemic antibiotic, initial encounter; G62.9 Polyneuropathy, unspecified; I48.91 Unspecified atrial fibrillation; F32.A Depression, unspecified; G89.29 Other chronic pain; M25.551 Pain in right hip; M19.90 Unspecified osteoarthritis, unspecified site; Z90.710 Acquired absence of both cervix and uterus; Z98.890 Other specified postprocedural states; Z79.899 Other long term (current) drug therapy
CPT/HCPCS: 0241U; 36415; 70450; 71045; 74176; 80048; 80053; 80061; 80069; 81001; 82607; 82746; 83605; 83735; 84145; 84443; 85025; 85027; 85651; 86140; 87040; 87077; 87086; 87186; 92526; 92610; 93005; 93010; 93306; 94760; 94762; 96365-59; 96366-59; 96368; 97110; 97112; 97162; 97166; 97530; 97535; 99285-25; A9270; C9113; J0456; J0692; J1650; J1885; J2060; J2185; J2405; J3370; J3475; J3480; J7030; J7040; J7050; J7060; J7120

== ENCOUNTER 2022-06-19 13:09 | Emergency (ER) | payer MEDICARE, BC ==
[~2022-06-19] VITALS: Ht 162.6 cm; Wt 72.6 kg
[~2022-06-19 13:09] MED LIST: ASPI81CH PO; Acetaminophen650 M1 PO; Calcium Carbon500 MG PO; Colace100 MG PO; Cymbalta20 MG PO; GABA300 PO; LEVSOD150 PO; LOSA50 PO; LOSARTAN-HCTZ1 EACH PO; MELA3 PO; METO50ER PO; PANT40 PO
[2022-06-19 13:44] LABS: BASOPHILS ABSOLUTE AUTO 0.02 K/mm3 (0.00-0.23); BASOPHILS PERCENT AUTO 0 % (0-2); EOSINOPHILS ABSOLUTE AUTO 0.03 K/mm3 (0.00-0.68); EOSINOPHILS PERCENT AUTO 0 % (0-6); Hematocrit 39.1 % (33.0-51.0); Hemoglobin 13.4 g/dL (11.5-16.0); IMMATURE GRAN ABSOLUTE AUTO 0.03 K/mm3 (0.00-0.10); IMMATURE GRAN PERCENT AUTO 0 % (0-1); LYMPHOCYTES ABSOLUTE AUTO 1.15 K/mm3 (0.84-5.20); LYMPHOCYTES PERCENT AUTO 13 % (21-46); MONOCYTES ABSOLUTE AUTO 0.58 K/mm3 (0.16-1.47); MONOCYTES PERCENT AUTO 7 % (4-13); Mean Corpuscular HGB 29.8 pg (26.0-34.0); Mean Corpuscular HGB Conc 34.3 g/dL (31.5-36.5); Mean Corpuscular Volume 87 fL (80-100); Mean Platelet Volume 8.6 fL (9.1-12.4); NEUTROPHILS ABSOLUTE AUTO 7.03 K/mm3 (1.96-9.15); NEUTROPHILS PERCENT AUTO 80 % (41-73); Platelet Count 525 K/mm3 (150-400); RDW Coefficient Variation 13.1 % (11.7-14.2); RDW Standard Deviation 40.6 fL (35.1-46.3); Red Blood Cell Count 4.49 M/mm3 (3.80-5.20); White Blood Cell Count 8.84 K/mm3 (4.00-11.30)
[2022-06-19 14:03] LABS: Albumin, Blood 2.7 g/dL (3.4-5.0); Albumin/Globulin Ratio 0.6 (0.8-1.8); Bilirubin, Total 0.6 mg/dL (0.1-1.0); Bun/Creatinine Ratio 25.5 (12.0-20.0); Calcium, Blood 9.2 mg/dL (8.5-10.1); Creatinine, Blood 0.55 mg/dL (0.40-1.00); Globulin, Blood 4.4 g/dL (2.2-4.0); Potassium, Blood 4.5 mmol/L (3.5-5.5); Total Protein, Blood 7.1 g/dL (6.4-8.2)
== END 2022-06-19 15:16 | disposition home or self-care (01) ==
LOC: ER 13:09
PROVIDERS: Emergency Medicine
DX: R53.1 Weakness (principal); Z79.899 Other long term (current) drug therapy; Z79.82 Long term (current) use of aspirin
CPT/HCPCS: 36415; 80053; 85025; 99285

== ENCOUNTER 2022-07-25 14:38 | Emergency (ER) | payer MEDICARE, BC ==
[~2022-07-25] VITALS: Ht 154.9 cm; Wt 72.6 kg
[2022-07-25 14:53] LABS: BASOPHILS ABSOLUTE AUTO 0.03 K/mm3 (0.00-0.23); BASOPHILS PERCENT AUTO 0 % (0-2); EOSINOPHILS ABSOLUTE AUTO 0.02 K/mm3 (0.00-0.68); EOSINOPHILS PERCENT AUTO 0 % (0-6); Hematocrit 35.1 % (33.0-51.0); Hemoglobin 12.1 g/dL (11.5-16.0); IMMATURE GRAN ABSOLUTE AUTO 0.03 K/mm3 (0.00-0.10); IMMATURE GRAN PERCENT AUTO 0 % (0-1); LYMPHOCYTES ABSOLUTE AUTO 1.27 K/mm3 (0.84-5.20); LYMPHOCYTES PERCENT AUTO 15 % (21-46); MONOCYTES ABSOLUTE AUTO 0.36 K/mm3 (0.16-1.47); MONOCYTES PERCENT AUTO 4 % (4-13); Mean Corpuscular HGB 30.6 pg (26.0-34.0); Mean Corpuscular HGB Conc 34.5 g/dL (31.5-36.5); Mean Corpuscular Volume 89 fL (80-100); Mean Platelet Volume 9.2 fL (9.1-12.4); NEUTROPHILS ABSOLUTE AUTO 6.79 K/mm3 (1.96-9.15); NEUTROPHILS PERCENT AUTO 80 % (41-73); Platelet Count 333 K/mm3 (150-400); RDW Standard Deviation 42.5 fL (35.1-46.3); Red Blood Cell Count 3.96 M/mm3 (3.80-5.20)
[2022-07-25] MEDS ORDERED: [UNRECOGNIZED DRUG - CODE] PO (15:14)
[2022-07-25] MEDS ORDERED: GABA100 PO (15:17)
[2022-07-25 15:19] LABS: Albumin, Blood 3.3 g/dL (3.4-5.0); Albumin/Globulin Ratio 0.8 (0.8-1.8); Bilirubin, Total 0.4 mg/dL (0.1-1.0); Bun/Creatinine Ratio 13.5 (12.0-20.0); Calcium, Blood 9.5 mg/dL (8.5-10.1); Creatinine, Blood 0.59 mg/dL (0.40-1.00); Globulin, Blood 4.1 g/dL (2.2-4.0); Potassium, Blood 3.7 mmol/L (3.5-5.5); Total Protein, Blood 7.4 g/dL (6.4-8.2)
[2022-07-25 16:46] LABS: Influenza A, PCR NEGATIVE (NEGATIVE); Influenza B, PCR NEGATIVE (NEGATIVE); Resp Syncytial Virus, PCR NEGATIVE (NEGATIVE); SARS-Cov-2 (COVID-19) PCR, MMC NEGATIVE (NEGATIVE)
[2022-07-25 17:31] LABS: Source, Urine Straight Cath
[2022-07-25 17:38] LABS: Bilirubin, Urine Neg (Neg); Blood, Urine Neg (Neg); Glucose Qualitative, Urine Neg (Neg); Ketones, Urine 2+ (Neg); Leukocyte Esterase, Urine 1+ (Neg); Nitrite, Urine Neg (Neg); Protein, Urine Neg (Neg); Urobilinogen, Urine NORM (Normal)
[2022-07-25 17:48] LABS: Appearance, Urine Clear (Clear); Color, Urine Pale Yellow (P-Yellow)
[2022-07-25 17:49] LABS: Bacteria Many /hpf; Red Blood Cells, Urine 0-2 /hpf (0-2); Squamous Epithelial Cells Few /hpf (Few); White Blood Cells, Urine 0-2 /hpf (0-5)
[2022-07-25] MEDS ORDERED: ONDA4ODT MM (18:08)
== END 2022-07-25 21:59 | disposition home or self-care (01) ==
LOC: ER 14:38
PROVIDERS: Emergency Medicine
DX: R11.10 Vomiting, unspecified (principal); E86.0 Dehydration; I10 Essential (primary) hypertension; E03.9 Hypothyroidism, unspecified; K21.9 Gastro-esophageal reflux disease without esophagitis; Z79.82 Long term (current) use of aspirin; Z79.899 Other long term (current) drug therapy; Z79.890 Hormone replacement therapy; Z96.651 Presence of right artificial knee joint; Z20.822 Contact with and (suspected) exposure to COVID-19
CPT/HCPCS: 0241U; 36415; 70450; 71045; 80053; 81001; 83605; 85025; 87077; 87086; 87186; 93005; 93010; 96361; 96365; 96375; 99285-25; J0696; J0780; J7030